=== PATIENT | male | born 1965 | race Caucasian/White ===

== ENCOUNTER 2018-06-15 10:44 | Emergency (ER) | payer SELFPAY ==
[2018-06-15 10:46] VITALS: BP 117/71; PULSE 105; RESP 12; TEMP 36.6; O2SAT 97
--- NOTE | 2018-06-15 10:54 | W.ED.GENAD ---
Discharge Plan Disposition Patient Disposition: [facility] Condition: Stable Discharge Details Chief Complaint: Abd Prob Clinical Impression: Empyema of right pleural space Primary Care Provider: None,None ED Provider: Ana Kennedy Home Meds and New Rx's Prescriptions: No Action No Known Home Meds RF: 0 Discharge Data Discharge Date/Time-TO BE ENTERED AT DEPARTURE: 06/15/18 14:44 Medical Decision Making Patient is a 53-year-old male presenting today complaint of right upper quadrant pain times 2 months. Reports the pain has increased over the past month. Reports the pain is in the right upper quadrant. He is attributing this to his right inguinal hernia which she reports is been there for the past year. Hernia is easily reproducible and is nontender in its own right. Patient, until recently, was drinking a gallon of bourbon a week. Stopped 3 weeks ago. Patient is also an 80+ pack year smoker, cut back on this the same time he cut back on his drinking. Patient denies any pain after eating but is concerned that the food choices he makes impacts his discomfort when having a bowel movement. Reports that he has had some constipation and that he has noted increased discomfort when having a bowel movement. Denies any fevers or chills. Denies any chest pain. Denies any shortness of breath. Has not had any previous abdominal surgeries. Reports that he had planned to come to the emergency department last week but secondary to weather, decided to delay until today. Does not have a primary care, has not been seen by medical professional in over 20 years. On exam, patient appears chronically ill, he is pale and dehydrated appearing. He is quite thin. Patient is noted to be slightly tachycardic at 105, vital signs otherwise normal. Abdomen is soft. He is tenderness in the right upper quadrant. Negative Mccann sign. Does have hepatomegaly. No CVA tenderness. Plan to obtain laboratory evaluation as well as CT scan to evaluate. Discussed this plan with the patient who is in agreement Labs signficant for WBC of 14.4. Unclear if this is infectious etiology, given his length of symptoms and that he does not appear acutely ill, this may not be associated with acute illness but rather with his pain. Patient is anemic with Hgb of 11.9, no previous to compare to. CT reviewed by radiologist. She advised patient has a 17cm fluid collection in the right lung. Concerning for empyema vs. post traumatic hematomoa vs. seroma. Advised negative abdomen and pelvis. Discussed findings with [facility] patient. While initially he had denied SOB but is now endorsing SOB that has been present since onset of symptoms. He had attributed this to his smoking. Consulted with Dr. Whiting with general surgery who advised consulting with thoracic surgery. Will also come to evaluate the patient. [place] [facility] [place] consult with [place]. Images [place] [facility] [place] Awaiting call back. Spoke with Dr. Anton with [facility] who advised that patient would need to be transferred to their facility for surgical intervention. He advised giving the patient a dose of IV ceftriaxone, obtain blood cultures, beginning on 75 mL of saline per hour. I did relay patients allergy to Penicillin. Patient has been n.p.o. since here and he asked that this continue. Last had water and chicken broth this morning. Patient reports that when an he had a rash with Penicillin. He is not completely clear but no description of anaphylaxis. Will start Ceftriaxone as advised by Dr. Anton but will keep him here to ensure no immediate reaction. Patient tolerated ceftriaxone here, transferred via [place] [facility] [place]. HPI General Mode of arrival: ambulatory. Date/Time Provider Initiated Documentation: 06/15/18 10:54. Limitations to Documentation: no limitations. Information obtained by: patient. History of Present Illness 53 year old M presents to the emergency department with the chief complaint of RUQ pain, described as moderate, with intensity rated at 3. and is localized to the abdomen. Patient reports no radiation. Patient started experiencing this month(s) (2) and it has been constant. No relieving factors improve symptom(s), No exacerbating factors reported . Patient notes loss of appetite; denies chest pain, cough, fever/chills, nausea/vomiting, rash and weakness. Patient did receive the following treatments prior to arrival, none Related Data Home Medications Medication Instructions Recorded Confirmed Unknown [No Known Home Meds] 06/15/18 06/15/18 Allergies Allergy/AdvReac Type Severity Reaction Status Date / Time Penicillins Allergy Unverified 06/15/18 10:51 General Stated Complaint: Abd Prob MARGARET: 3 Review of Systems Constitutional Reports as per HPI, Denies chills, Denies fatigue, Denies fever(s) and Denies headache(s) ENT Denies headache(s) Cardiovascular Reports as per HPI, Denies chest pain and Denies dyspnea Respiratory Denies dyspnea Gastrointestinal Reports as per HPI Genitourinary Denies system reviewed and no additional complaints, except as docu (patient denies any change in urinary habits) Musculoskeletal Reports as per HPI and Denies back pain Integumentary/Breasts Reports as per HPI and Denies rash Neurologic Denies headache(s) Endocrine Denies fatigue PFS Social History Smoking/Tobacco Use Status: Current every day alcohol intake: former year quit: 2017 Exam Const General: cooperative, comfortable, no acute distress, well developed and ill appearing chronically (appears dehydrated and pale, appears older than stated age) Nutritional Appearance: thin Orientation: alert and awake HENMT Head: normal to inspection Mouth: mucous membranes dry (patient appears dry) Resp Effort & Inspection: normal respiratory effort, able to speak in complete sentences and no respiratory distress Auscultation: diminished lung sounds on the right, no rales, no rhonchi and no wheezes Cardio Rate: regular rate Rhythm: regular rhythm Heart Sounds: S1 normal and S2 normal GI Inspection: no abdominal wall ecchymosis, no edema, non-distended, no large pannus, no obesity, no scars and visible herniation (visible and palpable right inguinal hernia, easily reduced, no pain) Palpation: soft, no aortic enlargement, not firm, no guarding, hepatomegaly, hernia (as above), no masses, no pulsatile masses, not rigid, no splenomegaly and tender in the epigastrum and in the RUQ; not at McBurney's point, not periumbilically and Mccann's sign negative Percussion: normal to percussion Auscultation: normal bowel sounds Back/Spine/Pelvis Back: no CVA tenderness Skin General skin exam: no rashes or lesions noted Trauma: no lacerations or abrasions Neuro General: alert and awake Cognition: normal cognition Speech: speech normal Gait: normal gait Psych Appearance: grossly normal and well kempt Mental Status: mental status grossly normal Speech and Movement: speech and movement normal Course Vital Signs Temperature 36.6 C 06/15/18 10:46 Pulse 105 H 06/15/18 10:46 Respiratory Rate 12 06/15/18 10:46 Blood Pressure 117/71 06/15/18 10:46 Pulse Oximetry 97 06/15/18 10:46 Temperature 36.6 C 06/15/18 10:46 Temperature Source Temporal Artery Scan 06/15/18 10:46 Pulse 105 H 06/15/18 10:46 Respiratory Rate 12 06/15/18 10:46 Respiratory Effort Non-Labored 06/15/18 10:51 Blood Pressure 117/71 06/15/18 10:46 Blood Pressure Position Sitting 06/15/18 10:46 Pulse Oximetry 97 06/15/18 10:46 Oxygen Delivery Method Room Air 06/15/18 10:46 Oxygen Flow Rate 0 06/15/18 10:46 Pain Level 3 06/15/18 10:46
--- NOTE | 2018-06-15 11:03 | DI.CT_ITS ---
SYMPTOM/DIAGNOSIS: RUQ PAIN CT CHEST, ABDOMEN AND PELVIS: There are no prior comparison exams. There is a large low density collection in the right hemithorax with some peripheral wall thickening and enhancement. It measures 17cm x 11cm x 17cm. There is no gas within the collection. The findings could represent an empyema. A seroma or hematoma are also possibilities. No mass is identified. There is a small right pleural effusion. No pulmonary nodules or adenopathy seen. There are mild emphysematous changes and mild interstitial changes. The heart size is normal. The aorta is normal in diameter. No pulmonary emboli are seen. There are no suspicious bony abnormalities. The liver is unremarkable without evidence of focal lesions other than a few tiny cysts. The gallbladder, pancreas and kidneys are unremarkable. The spleen is mildly enlarged. There is a small low density nodule on the right adrenal gland consistent with an adenoma. The aorta and iliac arteries show atherosclerotic changes with luminal narrowing. The bladder and prostate are unremarkable. There is no bowel dilatation or inflammatory change. No adenopathy, mass, free air or free fluid is seen in the abdomen or pelvis. There are bilateral L5 defects and mild L5-S1 spondylolisthesis as well as L5-S1 severe degenerative disc changes. Degenerative changes are seen at multiple other levels. No lytic or blastic lesions are seen. IMPRESSION: Large low density collection in the right hemithorax with adjacent compressed lung. The findings could represent a large empyema vs hematoma or seroma.
--- NOTE | 2018-06-15 11:15 | ED.GENADUL_ITS ---
Discharge Plan Disposition Patient Disposition: [facility] Condition: Stable Discharge Details Chief Complaint: Abd Prob Clinical Impression: Empyema of right pleural space Primary Care Provider: None,None ED Provider: Ana Kennedy Home Meds and New Rx's Prescriptions: No Action No Known Home Meds RF: 0 Discharge Data Discharge Date/Time-TO BE ENTERED AT DEPARTURE: 06/15/18 14:44 Medical Decision Making Patient is a 53-year-old male presenting today complaint of right upper quadrant pain times 2 months. Reports the pain has increased over the past month. Reports the pain is in the right upper quadrant. He is attributing this to his right inguinal hernia which she reports is been there for the past year. Hernia is easily reproducible and is nontender in its own right. Patient, until recently, was drinking a gallon of bourbon a week. Stopped 3 weeks ago. Patient is also an 80+ pack year smoker, cut back on this the same time he cut back on his drinking. Patient denies any pain after eating but is concerned that the food choices he makes impacts his discomfort when having a bowel movement. Reports that he has had some constipation and that he has noted increased discomfort when having a bowel movement. Denies any fevers or chills. Denies any chest pain. Denies any shortness of breath. Has not had any previous abdominal surgeries. Reports that he had planned to come to the emergency department last week but secondary to weather, decided to delay until today. Does not have a primary care, has not been seen by medical professional in over 20 years. On exam, patient appears chronically ill, he is pale and dehydrated appearing. He is quite thin. Patient is noted to be slightly tachycardic at 105, vital signs otherwise normal. Abdomen is soft. He is tenderness in the right upper quadrant. Negative Mccann sign. Does have hepatomegaly. No CVA tenderness. Plan to obtain laboratory evaluation as well as CT scan to evaluate. Discussed this plan with the patient who is in agreement Labs signficant for WBC of 14.4. Unclear if this is infectious etiology, given his length of symptoms and that he does not appear acutely ill, this may not be associated with acute illness but rather with his pain. Patient is anemic with Hgb of 11.9, no previous to compare to. CT reviewed by radiologist. She advised patient has a 17cm fluid collection in the right lung. Concerning for empyema vs. post traumatic hematomoa vs. seroma. Advised negative abdomen and pelvis. Discussed findings with [facility] patient. While initially he had denied SOB but is now endorsing SOB that has been present since onset of symptoms. He had attributed this to his smoking. Consulted with Dr. Whiting with general surgery who advised consulting with thoracic surgery. Will also come to evaluate the patient. Contacted [facility] [place] and requested consult with thoracic surgery. Images pushed to [facility] [place]. Awaiting call back. Spoke with Dr. Anton with [facility] thoracic surgery who advised that patient would need to be transferred to their facility for surgical intervention. He advised giving the patient a dose of IV ceftriaxone, obtain blood cultures, beginning on 75 mL of saline per hour. I did relay patients allergy to Penicillin. Patient has been n.p.o. since here and he asked that this continue. Last had water and chicken broth this morning. Patient reports that when an he had a rash with Penicillin. He is not completely clear but no description of anaphylaxis. Will start Ceftriaxone as advised by Dr. Anton but will keep him here to ensure no immediate reaction. Patient tolerated ceftriaxone here, transferred via EMS to [facility] [place] for continued care. HPI General Mode of arrival: ambulatory . Date/Time Provider Initiated Documentation: 06/15/18 10:54 . Limitations to Documentation: no limitations . Information obtained by: patient . History of Present Illness 53 year old M presents to the emergency department with the chief complaint of RUQ pain, described as moderate, with intensity rated at 3. and is localized to the abdomen. Patient reports no radiation. Patient started experiencing this month(s) (2) and it has been constant. No relieving factors improve symptom(s), No exacerbating factors reported . Patient notes loss of appetite; denies chest pain, cough, fever/chills, nausea/vomiting, rash and weakness. Patient did receive the following treatments prior to arrival, none Related Data Home Medications Medication Instructions Recorded Confirmed Unknown [No Known Home Meds] 06/15/18 06/15/18 Allergies Allergy/AdvReac Type Severity Reaction Status Date / Time Penicillins Allergy Unverified 06/15/18 10:51 General Stated Complaint: Abd Prob MARGARET: 3 Review of Systems Constitutional Reports as per HPI, Denies chills, Denies fatigue, Denies fever(s) and Denies headache(s) ENT Denies headache(s) Cardiovascular Reports as per HPI, Denies chest pain and Denies dyspnea Respiratory Denies dyspnea Gastrointestinal Reports as per HPI Genitourinary Denies system reviewed and no additional complaints, except as docu (patient denies any change in urinary habits) Musculoskeletal Reports as per HPI and Denies back pain Integumentary/Breasts Reports as per HPI and Denies rash Neurologic Denies headache(s) Endocrine Denies fatigue PFS Social History Smoking/Tobacco Use Status: Current every day alcohol intake: former year quit: 2017 Exam Const General: cooperative, comfortable, no acute distress, well developed and ill appearing chronically (appears dehydrated and pale, appears older than stated a ge) Nutritional Appearance: thin Orientation: alert and awake HENMT Head: normal to inspection Mouth: mucous membranes dry (patient appears dry) Resp Effort & Inspection: normal respiratory effort, able to speak in complete senten latanya and no respiratory distress Auscultation: diminished lung sounds on the right, no rales, no rhonchi and no wheezes Cardio Rate: regular rate Rhythm: regular rhythm Heart Sounds: S1 normal and S2 normal GI Inspection: no abdominal wall ecchymosis, no edema, non-distended, no large pannus, no obesity, no scars and visible herniation (visible and palpable right inguinal hernia, easily reduced, no pain) Palpation: soft, no aortic enlargement, not firm, no guarding, hepatomegaly, hernia (as above), no masses, no pulsatile masses, not rigid, no splenomegaly and tender in the epigastrum and in the RUQ; not at McBurney's point, not periumbilically and Mccann's sign negative Percussion: normal to percussion Auscultation: normal bowel sounds Back/Spine/Pelvis Back: no CVA tenderness Skin General skin exam: no rashes or lesions noted Trauma: no lacerations or abrasions Neuro General: alert and awake Cognition: normal cognition Speech: speech normal Gait: normal gait Psych Appearance: grossly normal and well kempt Mental Status: mental status grossly normal Speech and Movement: speech and movement normal Course Vital Signs Temperature 36.6 C 06/15/18 10:46 Pulse 105 H 06/15/18 10:46 Respiratory Rate 12 06/15/18 10:46 Blood Pressure 117/71 06/15/18 10:46 Pulse Oximetry 97 06/15/18 10:46 Temperature 36.6 C 06/15/18 10:46 Temperature Source Temporal Artery Scan 06/15/18 10:46 Pulse 105 H 06/15/18 10:46 Respiratory Rate 12 06/15/18 10:46 Respiratory Effort Non-Labored 06/15/18 10:51 Blood Pressure 117/71 06/15/18 10:46 Blood Pressure Position Sitting 06/15/18 10:46 Pulse Oximetry 97 06/15/18 10:46 Oxygen Delivery Method Room Air 06/15/18 10:46 Oxygen Flow Rate 0 06/15/18 10:46 Pain Level 3 06/15/18 10:46
[2018-06-15 11:36] LABS: Abs Immature Grans 0.05 k/cumm (0.0-0.09); Absolute Basophil Count 0.03 k/cumm (0.0-0.2); Absolute Eosinophil Count 0.03 k/cumm (0.0-0.7); Absolute Lymphocyte Count 1.84 k/cumm (1.2-3.4); Absolute Monocyte Count 1.14 k/cumm (0.11-0.7); Absolute Neutrophil Count 11.39 k/cumm (1.2-6.7); Basophils % 0.2; Eosinophils % 0.2; HCT 35.7 % (40.0-50.0); HGB 11.9 g/dL (13.5-17.5); Immature Grans % 0.3; Lymphocytes % 12.7; Mean Corp. HGB Concentration 33.3 g/dL (32.0-36.0); Mean Corpuscular Hemoglobin 30.7 pg (27.0-33.0); Mean Corpuscular Volume 92.2 fL (80-95); Mean Platelet Volume 8.5 fL (8.0-11.0); Monocytes % 7.9; Neutrophils % 78.7; Platelet Count 487 x1000/uL (130-400); RBC 3.87 m/cumm (4.50-6.00); White Blood Cell Count 14.47 k/cumm (4.4-10.8)
[2018-06-15 11:48] LABS: INR 1.4 (0.9-1.1); Lipase 219 U/L (73-393); Prothrombin Time 13.6 sec (9.3-11.0)
[2018-06-15 11:51] LABS: ALT 15 U/L (12-78); AST 12 U/L (15-37); Albumin 2.2 g/dL (3.4-5.0); Alkaline Phosphatase 61 U/L (46-116); Anion Gap 8.5 mmol/L (3-11); BUN 12 mg/dL (7-18); Bilirubin, Total 0.2 mg/dL (0.2-1.0); CO2 27.5 mmol/L (21.0-32.0); CREATININE 1.09 mg/dL (0.70-1.30); Calcium 9.3 mg/dL (8.5-10.1); Chloride 99 mmol/L (98-107); Glucose 117 mg/dL (70-100); Magnesium 1.9 mg/dL (1.8-2.4); Sodium 135 mmol/L (136-145)
[2018-06-15 11:52] LABS: Troponin I < 0.02 ng/mL (0.00-0.06)
[2018-06-15] MEDS: Omnipaque 350 MG/ML 100 ML BTL IJ (12:10)
[2018-06-15 12:36] VITALS: BP 111/70; PULSE 100; RESP 16; O2SAT 96
[2018-06-15] MEDS: Normal Saline 1,000 ML 1000 ML IV (13:00)
--- NOTE | 2018-06-15 13:04 | NUR.NOTE ---
Nursing Note: MD Woods at the bedside.
--- NOTE | 2018-06-15 14:10 | SCONE_ITS ---
Date of service: 06/15/18 Time of Service: 14:03 Assessment and Plan (1) Leukocytosis (leucocytosis): Start date: 06/15/18 Start time: 14:08 Current visit: Yes Status: Acute Patient has a 14,000 white count most likely consistent with the infectious process going on in the right chest would consultation with thoracic surgeon from [facility] (2) Empyema of right pleural space: Start date: 06/15/18 Start time: 14:08 Current visit: Yes Status: Acute Patient CT was examined in detail shows a large right-sided empyema with a thick wall this would require a thoracic surgeon for evaluation with a VATS and thoracotomy with decortication and evacuation of the empyema. Patient's history is not consistent with any trauma most likely etiology was a pneumonia that had developed into a pleural effusion then became an empyema. (3) Right-sided chest pain: Start date: 06/15/18 Start time: 14:08 Current visit: Yes Status: Acute Right-sided chest collection most likely secondary to an infectious process History of Present Illness Chief Complaint: Patient has been having chest pain for roughly 2 months now Narrative: Patient was a heavy drinker and smoker who approximately 2 months ago began having chest pains with right upper quadrant tenderness no history of trauma to the area Review of Systems Review of Systems All systems reviewed & are unremarkable except as noted in HPI and below Constitutional Reports as per HPI Cardiovascular Reports as per HPI and Reports chest pain (Right-sided extending to the right upper quadrant) Respiratory Reports as per HPI, Reports pain on inspiration and Reports pain with cough Gastrointestinal Reports as per HPI and Reports system reviewed and no additional complaints, except as docu PFSH Social History Smoking/Tobacco Use Status: Current every day alcohol intake: former year quit: 2018 Exam Narrative Exam Narrative: Right upper quadrant and right lower chest pain Const General: cooperative Nutritional Appearance: average body habitus Orientation: alert, awake and oriented x3 Chest Chest: normal inspection of the chest Breast inspection: normal inspection of the breasts Resp Effort & Inspection: normal respiratory effort Auscultation: breath sounds absent on the right (Lower and middle lobes) GI Inspection: normal to inspection Palpation: soft Percussion: normal to percussion Auscultation: normal bowel sounds Results Last Vital Signs Temp 36.6 C 06/15/18 10:46 Pulse 100 H 06/15/18 12:36 Resp 16 06/15/18 12:36 BP 111/70 06/15/18 12:36 Pulse Ox 96 06/15/18 12:36 Labs : 06/15/18 11:25 06/15/18 11:25 Laboratory Results - last 24 hr 06/15/18 06/15/18 06/15/18 11:25 11:25 11:25 WBC RBC Hgb Hct MCV MCH MCHC RDW Plt Count MPV Immature Gran % Neutrophils % Lymphocytes % Monocytes % Eosinophils % Basophils % Absolute Neutrophils Absolute Lymphocytes Absolute Monocytes Absolute Eosinophils Absolute Basophils PT 13.6 H INR 1.4 H Sodium 135 L Potassium 4.0 Chloride 99 Carbon Dioxide 27.5 Anion Gap 8.5 BUN 12 Creatinine 1.09 Estimated GFR/1.73 m2 >= 60.00 Glucose 117 H Calcium 9.3 Magnesium 1.9 Total Bilirubin 0.2 AST 12 L ALT 15 Alkaline Phosphatase 61 Troponin I < 0.02 Total Protein 7.0 Albumin 2.2 L Lipase 219 06/15/18 11:25 WBC 14.47 H RBC 3.87 L Hgb 11.9 L Hct 35.7 L MCV 92.2 MCH 30.7 MCHC 33.3 RDW 14.0 Plt Count 487 H MPV 8.5 Immature Gran % 0.3 Neutrophils % 78.7 Lymphocytes % 12.7 Monocytes % 7.9 Eosinophils % 0.2 Basophils % 0.2 Absolute Neutrophils 11.39 H Absolute Lymphocytes 1.84 Absolute Monocytes 1.14 H Absolute Eosinophils 0.03 Absolute Basophils 0.03 PT INR Sodium Potassium Chloride Carbon Dioxide Anion Gap BUN Creatinine Estimated GFR/1.73 m2 Glucose Calcium Magnesium Total Bilirubin AST ALT Alkaline Phosphatase Troponin I Total Protein Albumin Lipase
[2018-06-15] MEDS: Normal Saline 1,000 ML 75 ML IV (14:23)
[2018-06-15 14:32] VITALS: BP 114/68; PULSE 98; RESP 18; O2SAT 96
== END 2018-06-15 14:44 | disposition short-term general hospital (02) ==
PROVIDERS: Emergency Provider Physician Assistant
DX: J86.9 Pyothorax without fistula (principal); F17.210 Nicotine dependence, cigarettes, uncomplicated
CPT/HCPCS: 36415; 74177; 80053; 83690; 87040; 96361; 96365; 99253; 99285; 71260; 83735; 84484; 85025; 85610; J3490